=== PATIENT | male | born 1960 | race Caucasian/White ===

== ENCOUNTER 2024-10-19 14:47 | Outpatient (CLI) | payer MEDICARE, SELFPAY ==
[2024-10-25 14:10] LABS: Pancreatic Elastase, Fecal >800 (>200)
== END 2024-10-19 23:59 | disposition home or self-care (01) ==
PROVIDERS: PCP Nurse Practitioner; Visit Provider Nurse Practitioner Family
DX: R19.7 Diarrhea, unspecified (principal)
CPT/HCPCS: 82656

== ENCOUNTER 2024-11-17 12:11 | Day surgery (SDC) | payer MEDICARE, SELFPAY ==
[2024-11-15 17:16] VITALS: BMI 30.9
[2024-11-17 12:31] VITALS: BP 145/81; PULSE 85; RESP 17; TEMP 36.6; O2SAT 96
[2024-11-17] MEDS: LACTATED RINGERS 1000ML 1,000 ML 50 ML IV (12:37)
[2024-11-17 12:41] LABS: POC Glucose,Bedside 111 (70-110)
--- NOTE | 2024-11-17 13:08 | P.PNANES_ITS ---
[facility] Disclaimer: The information contained in this section may have been updated after the patient was seen, as this information can be updated by other users. Medical History Hernia Colonoscopy planned Surgical History (Updated 11/17/24 @ 12:27 by Carola Perez RN) H/O ventral hernia repair Family History Father Cancer Diabetes Daughter Thyroid disorder Mother Thyroid disorder Stroke Other Hypertension Social History Smoking Status: Never smoker alcohol intake: never substance use type: denies use current occupational status: retired Travel in the last 8 weeks: None Have you lived/traveled outside [place] in past 30 days?: No Contact w/someone who lives/traveled outside US past 30 days?: No Exposure to someone with infectious disease in past 14 days?: No Do you have a fever (greater than 100.4 F or 38 C)?: No Have you tested positive for COVID-19: No Exposed to someone with COVID-19 in past 14 days?: No Do you have a sore throat?: No Do you have a cough?: No Do you have any weakness?: No Do you have any diarrhea?: No Are you experiencing any unusual bleeding?: No Do you have any muscle aches/pain?: No Do you have any abdominal pain?: No Are you experiencing loss of taste or smell?: No [facility] Anesthesia Checklist Patient Identification Patient Identification: Arm Band Structural Data Admitted From: Home Planned Operative Procedure/s: Colonoscopy Consent for Planned Operative Procedure(s) Verified: Yes Verified Documents: Surgical Consent and History and Physical NPO Status Verified Time NPO: 00:00 Additional verifications Anesthesia Reactions: No Airway Assessment Mallampati Score:: Class II C-Spine Mobility Assessed: Yes TMJ Mobility Assessed: Yes Dentition: Good Dentition Neurological Assessment Level of Consciousness: Awake, Alert and Appropriate Anesthesia Plan Anesthesia Risk discussed: Yes Anesthesia Plan: Verified ASA Class: III Anesthesia Type: MAC
--- NOTE | 2024-11-17 14:07 | P.HP_ITS ---
History of Present Illness *Admission Date: 11/17/24 *Reason for visit:: Irregular bowel function/diarrhea *History of present illness: Mr. Ortega is a 64-year-old gentleman who is here for diagnostic colonoscopy. The patient has had intermittent diarrhea/watery stools and bloating. He does have a history of pancreatitis. The examination is deemed medically necessary for diagnostic colonoscopy. The patient has been seen, interviewed and examined prior to the procedure by both myself and the anesthesia provider. [facility] Disclaimer: The information contained in this section may have been updated after the patient was seen, as this information can be updated by other users. Medical History Hernia Colonoscopy planned Surgical History (Updated 11/17/24 @ 13:36 by Ciarra Huff RN) History of surgery H/O ventral hernia repair Family History Father Cancer Diabetes Daughter Thyroid disorder Mother Thyroid disorder Stroke Other Hypertension Social History Smoking Status: Never smoker alcohol intake: never substance use type: denies use current occupational status: retired Travel in the last 8 weeks: None Have you lived/traveled outside [place] in past 30 days?: No Contact w/someone who lives/traveled outside [place] past 30 days?: No Exposure to someone with infectious disease in past 14 days?: No Do you have a fever (greater than 100.4 F or 38 C)?: No Have you tested positive for COVID-19: No Exposed to someone with COVID-19 in past 14 days?: No Do you have a sore throat?: No Do you have a cough?: No Do you have any weakness?: No Do you have any diarrhea?: No Are you experiencing any unusual bleeding?: No Do you have any muscle aches/pain?: No Do you have any abdominal pain?: No Are you experiencing loss of taste or smell?: No Other Medical History Have you received the Pneumonia Vaccine: Yes Review of Systems Review of Systems Review of systems (narrative): Negative *Cardiovascular Comments: Negative *Gastrointestinal Comments: Negative *Genitourinary Comments: Negative *Musculoskeletal Comments: Negative *Neurologic Comments: Negative Meds Home Medications and Allergies Home Medications ?Medication ?Instructions ?Recorded ?Confirmed ?Type alfuzosin 10 mg tablet,extended 10 mg PO DAILY 08/02/24 11/17/24 History release 24 hr amitriptyline 25 mg tablet 25 mg PO DAILY 08/02/24 11/17/24 History atorvastatin 40 mg tablet 40 mg PO DAILY 08/02/24 11/17/24 History duloxetine 60 mg capsule,delayed 60 mg PO BID 08/02/24 11/17/24 History release empagliflozin 25 mg tablet 25 mg PO BID 08/02/24 11/17/24 History (Jardiance) lactulose 10 gram/15 mL oral 10 g PO NEEDED PRN liver 08/02/24 11/17/24 History solution levothyroxine 75 mcg tablet 75 mcg PO DAILY 08/02/24 11/17/24 History losartan 100 mg tablet 100 mg PO DAILY 08/02/24 11/17/24 History pregabalin 300 mg capsule 300 mg PO DAILY 08/02/24 11/17/24 History tirzepatide 2.5 mg/0.5 mL 2.5 mg SQ WEEKLY 08/02/24 11/17/24 History subcutaneous pen injector (Jordana) New Prescriptions to Start Prescriptions: Allergies Allergy/AdvReac Type Severity Reaction Status Date / Time No Known Allergies Allergy Verified 11/17/24 12:27 Exam Data for Last 24 hours Vital signs and Labs for Last 24 Hours: Temp Pulse Resp BP Pulse Ox O2 Del Method 98 F 85 17 145/81 H 96 Room Air 11/17/24 12:31 11/17/24 12:31 11/17/24 12:31 11/17/24 12:31 11/17/24 12:31 11/17/24 12:31 Laboratory Results - last 24 hr 11/17/24 12:32: POC Glucose 111 H I & O for Last 24 hours: Intake & Output 11/14/24 11/15/24 11/16/24 11/17/24 23:59 23:59 23:59 23:59 Weight 235 lb *Routine HEENT Exam Head: Present normocephalic Eye: Present EOMI and PERRL ENT: Present mucous membranes moist *Routine Neck Exam Neck: Present supple *Routine Respiratory Exam Respiratory: Present CTA bilaterally *Routine Cardiovascular Exam Cardiovascular: Present RRR *Routine Abdominal Exam Abdominal: Present soft and normoactive bowel sounds; Absent tenderness *Routine Rectal Exam Rectal:: deferred *Routine Genitalia Exam Genitalia:: deferred *Routine Extremities Exam Extremities: Absent cyanosis, clubbing or edema *Routine Skin Exam Skin: Present warm; Absent rash *Routine Neurological Exam Neurological: Present alert and oriented X3 Assessment and Plan *Assessment and plan (1) Diarrhea: Status: Acute Category: Medical Code(s): R19.7 - Diarrhea, unspecified (2) Change in bowel habits: Status: Acute Category: Medical Code(s): R19.4 - Change in bowel habit (3) Bloating: Status: Acute Category: Medical Code(s): R14.0 - Abdominal distension (gaseous) Plan A/P: 1. Diarrhea/change in bowel habits and bloating is the preprocedural diagnosis. The patient will be anesthetized/sedated using MAC sedation. The patient has been seen and examined. Cardiac and lung assessment prior to the examination is stable. Proceed with planned diagnostic colonoscopy
[2024-11-17 14:16] VITALS: O2SAT 99
--- NOTE | 2024-11-17 14:35 | HMH.PROCNOTE ---
[facility] Procedure Note Date: 11/17/24 Time: 14:35 Procedure Note:: Colonoscopy Procedure Report: Colonoscopy with cold snare polypectomy and cold biopsies Endoscopist: Cayetano Del Castillo II, MD Referring physician: MARY ELLEN Durbin Date of Procedure: November 17, 2024 Equipment: Olympus 190 variable stiffness pediatric colonoscope Sedation: MAC sedation Indication: Mr. Ortega is a 64-year-old gentleman who is here for diagnostic colonoscopy secondary to a change in bowel habits. The patient formerly had chronic constipation and bloating. He also has a history of JUAN and well compensated cirrhosis. He did have prior hepatic encephalopathy and is followed at the [facility] hepatology division. He was on Xifaxan twice daily. He is on Mounjaro and has loose multiple stools a day but about once a week he would have explosive diarrhea throughout the day. He did complete radiation for prostate cancer early last year. He does have a history of colonic polyps and was on a 3-year surveillance interval. His last colonoscopy with [facility] in January 2019 revealed a single polyp and he was given 5-year surveillance interval. The patient was hospitalized in February 2024 for diarrhea and dehydration ([facility]). His PCR panel was negative. He did try Creon but these were cost prohibitive and he was not improving. He has been on lactulose. The patient reports no rectal bleeding or weight loss. He reports no cramps or abdominal pain. He reports no family history of colon cancer. He was having some belching that was sulfur smelling. He has had gassiness and bloating. His last episode of explosive diarrhea occurred last month after he had been seen in the office in late September with Joanie HYDE. Procedure: Prior to the procedure, a history and physical exam was performed, and patient's medications and allergies were reviewed. The risks, benefits and alternatives of the sedation and procedure were discussed with the patient. All questions were answered and informed consent was obtained. The patient was brought to the procedure room. Patient identification and proposed procedure were verified by the physician and the nurse. The patient was placed in a left lateral decubitus position and the scope was passed under direct vision. Throughout the procedure, the patient's blood pressure, pulse, and oxygen saturations were monitored continuously. The colonoscopy was accomplished without difficulty. The patient tolerated the procedure well. Findings: On digital rectal examination there was normal rectal tone. There were no external hemorrhoids. The colonoscope was introduced through the anal canal to the rectum and advanced to the cecum. The ileocecal valve and appendiceal orifice were identified. The scope was advanced a short distance into the ileum which appeared grossly normal. The scope was then withdrawn into the colon. There was a single 4 mm descending colon polyp that was removed via cold biopsy. There was also a single superficial small ulcer in the descending colon near the splenic flexure that was biopsied. Random biopsies were taken from both the right and left colon to rule out microscopic colitis.. Upon retroflexion within the rectum there were 2 internal hemorrhoids. There was no evidence of any significant radiation proctitis. The preparation was excellent throughout with Blackstone Preparation Score of 9. The cecal time was 12 minutes. Impression: 1. Diminutive descending colon polyp 2. Very shallow superficial small descending colon ulcer 3. Grade 2 internal hemorrhoids Plan: I will follow-up the biopsies and polyp histology. I do feel that he is getting intermittent colonic bacterial overgrowth syndrome. Bacterial overgrowth syndrome is a term that describes symptoms or clinical manifestations (i.e. bloating and bowel irregularity) that occur when the normally low number of bacteria in the colon increase but also can sometimes inhabit the small intestine (SIBO-small intestinal bacterial overgrowth). The small bowel and upper digestive tract are thought to be a sterile environment. However, low concentrations of various bacteria live within or are attached to the luminal surface of the small intestine. These are present from the time of and throughout adulthood, living in symbiosis with the human body. They are vital for normal digestion and immunity and intestinal development. There are various occurrences that can disrupt our bodies mechanisms that keep the number of these bacteria low. Certainly peristalsis and gastric acidity help to keep these bacterial populations lower. The colonic bacterial population usually increases when there is increased fecal burden (reduced colonic clearance/incomplete defecation). It can also occur when foods are less digestable/absorbable and provide substrate for colonic denisse (i.e. FODMAP's) which results in fermentation and increased colonic denisse. It can also occur with digestive enzyme deficiencies. When foods/carbohydrates are not enzymatically digested, the sugars (often disaccharides) too become substrate for colonic floral overgrowth.
[2024-11-17 14:41] VITALS: BP 99/55; PULSE 70; RESP 16; TEMP 36.2; O2SAT 92
[2024-11-17 14:51] VITALS: BP 99/57; PULSE 67; RESP 18; O2SAT 92
[2024-11-17 15:01] VITALS: BP 105/60; PULSE 60; RESP 18; O2SAT 92
[2024-11-17 15:11] VITALS: BP 108/60; PULSE 60; RESP 18; O2SAT 94
== END 2024-11-17 15:57 | disposition home or self-care (01) ==
PROVIDERS: PCP Nurse Practitioner; Visit Provider Internal Medicine Gastroenterology
PROC: 0DJD8ZZ Inspection of Lower Intestinal Tract, Via Natural or Artificial Opening Endoscopic (ICD-10-PCS; CPT 45378; principal; 2024-11-17 14:00)
DX: R19.7 Diarrhea, unspecified (principal); R19.4 Change in bowel habit; R14.0 Abdominal distension (gaseous); K76.82 Hepatic encephalopathy; Z86.0100 Personal history of colon polyps, unspecified; K63.5 Polyp of colon; K63.3 Ulcer of intestine; K64.1 Second degree hemorrhoids; Z79.85 Long-term (current) use of injectable non-insulin antidiabetic drugs
CPT/HCPCS: 45380; 82962; J2704; J7120

== ENCOUNTER 2024-12-14 11:52 | Emergency (ER) | payer MEDICARE, SELFPAY ==
[2024-12-14 12:20] VITALS: BP 123/92; PULSE 80; RESP 18; TEMP 36.8; O2SAT 96; BMI 31.6
--- NOTE | 2024-12-14 12:29 | HMH.EDGENADL ---
Discharge Plan Disposition Patient Disposition: Admitted Condition: Good Prescriptions Prescriptions: No Action losartan 100 mg tablet 100 mg PO DAILY Patient Comments: TAKE 1 TABLET BY MOUTH ONCE DAILY FOR BLOOD PRESSURE Mounjaro 2.5 mg/0.5 mL pen injector 2.5 mg SQ WEEKLY Patient Comments: INJECT 1/2 (ONE-HALF) ML SUBCUTANEOUSLY ONCE A WEEK DIRECTED atorvastatin 40 mg tablet 40 mg PO DAILY Patient Comments: TAKE 1 TABLET BY MOUTH ONCE DAILY AT NIGHT pregabalin 300 mg capsule 300 mg PO DAILY Patient Comments: TAKE 1 CAPSULE BY MOUTH TWICE DAILY duloxetine 60 mg capsule,delayed release(DR/EC) 60 mg PO BID Patient Comments: TAKE 1 CAPSULE BY MOUTH TWICE DAILY Jardiance 25 mg tablet 25 mg PO BID Patient Comments: TAKE 1 TABLET BY MOUTH ONCE DAILY levothyroxine 75 mcg tablet 75 mcg PO DAILY Patient Comments: TAKE 1 TABLET BY MOUTH ONCE DAILY alfuzosin 10 mg tablet extended release 24 hr 10 mg PO DAILY Patient Comments: TAKE 1 TABLET BY MOUTH ONCE DAILY amitriptyline 25 mg tablet 25 mg PO DAILY Patient Comments: TAKE 1 TO 2 TABLETS BY MOUTH AT BEDTIME Xifaxan 550 mg tablet 550 mg PO BID Qty: 60 12RF Rx Instructions: 1 tablet p.o. twice daily Referrals Follow up/Referrals: Elsy Montoya APRN [Primary Care Provider] - See instructions Activity Restrictions/Add. Instructions Additional Instructions/Restrictions: Please start a brat diet which is bananas rice applesauce toast as you tolerate you can advance your diet. I have recommended what Dr. Del Castillo suggested which is start align probiotic. Please schedule your follow-up with Dr. Del Castillo. If you have any worsening signs or symptoms including increasing pain fever return to the ER. Clinical Impressions Clinical Impression: Enterocolitis Instructions Patient Instructions: DI for Diarrhea and Traveler's Diarrhea -- Adult, DI for Nausea -- Adult, DI for Enteritis Print Language Print Language: Occitan Discharge ED Provider: Dick Bridges General Adult HPI <MISAEL Webster - Last Filed: 12/14/24 17:58> General Chief complaint: Nausea/Vomiting/Diarrhea Stated complaint: sent by Dr. Del Castillo for dehydration/diarrhea Time Seen by Provider: 12/14/24 12:29 History of Present Illness HPI narrative: Patient presents for evaluation of watery diarrhea. Patient has complicated past medical history of nonalcoholic hepatic steatosis that has been previously well compensated. He has been on lactulose for 28 months prior to his colonoscopy procedure in 17 November of this year by Dr. Del Castillo. He has had a episode of hepatic encephalopathy which was the reason for the initiation of the lactulose. Patient is also on Mounjaro for type 2 diabetes mellitus, history of polyps state cancer status postradiation, hyperlipidemia, hypothyroidism, hypertension, and anxiety/depression. After his endoscopy patient was recommended to discontinue lactulose by Dr. Del Castillo secondary to possible bacterial overgrowth and patient ultimately had resolution of his symptoms until this weekend. Patient reports that since Friday he has had greater than 10 watery stools preceded by belching of sulfur abdominal cramping. He denies any fever intolerance of oral intake vomiting chest pain shortness of breath hemoptysis hematochezia melena hematemesis hematuria. He contacted Dr. Del Castillo office today and was advised to come to the ER for evaluation for possible dehydration. Related Data Home Medications ?Medication ?Instructions ?Recorded ?Confirmed alfuzosin 10 mg tablet,extended 10 mg PO DAILY 08/02/24 12/14/24 release 24 hr amitriptyline 25 mg tablet 25 mg PO DAILY 08/02/24 12/14/24 atorvastatin 40 mg tablet 40 mg PO DAILY 08/02/24 12/14/24 duloxetine 60 mg capsule,delayed 60 mg PO BID 08/02/24 12/14/24 release empagliflozin 25 mg tablet 25 mg PO BID 08/02/24 12/14/24 (Jardiance) levothyroxine 75 mcg tablet 75 mcg PO DAILY 08/02/24 12/14/24 losartan 100 mg tablet 100 mg PO DAILY 08/02/24 12/14/24 pregabalin 300 mg capsule 300 mg PO DAILY 08/02/24 12/14/24 tirzepatide 2.5 mg/0.5 mL 2.5 mg SQ WEEKLY 08/02/24 12/14/24 subcutaneous pen injector (Mounjaro) Previous Rx's ?Medication ?Instructions ?Recorded rifaximin 550 mg tablet (Xifaxan) 550 mg PO BID #60 tabs 12/14/24 Allergies Allergy/AdvReac Type Severity Reaction Status Date / Time No Known Allergies Allergy Verified 12/14/24 12:47 [facility] <MISAEL Webster - Last Filed: 12/14/24 17:58> [facility] Disclaimer: The information contained in this section may have been updated after the patient was seen, as this information can be updated by other users. Medical History (Updated 12/14/24 @ 15:00 by MISAEL Webster) Hernia Colonoscopy planned Surgical History History of surgery H/O ventral hernia repair Family History Father Cancer Diabetes Daughter Thyroid disorder Mother Thyroid disorder Stroke Other Hypertension Social History Smoking Status: Never smoker alcohol intake: never substance use type: denies use current occupational status: retired Travel in the last 8 weeks: None Have you lived/traveled outside [place] in past 30 days?: No Contact w/someone who lives/traveled outside US past 30 days?: No Exposure to someone with infectious disease in past 14 days?: No Do you have a fever (greater than 100.4 F or 38 C)?: No Have you tested positive for COVID-19: No Exposed to someone with COVID-19 in past 14 days?: No Do you have a sore throat?: No Do you have a cough?: No Do you have any weakness?: No Do you have any diarrhea?: Yes Are you experiencing any unusual bleeding?: No Do you have any muscle aches/pain?: No Do you have any abdominal pain?: No Are you experiencing loss of taste or smell?: No Other Medical History Have you received the Pneumonia Vaccine: Yes <MISAEL Webster - Last Filed: 12/14/24 17:58> ROS Obtained: Yes Systems reviewed as appropriate & no additional complaints except as documented Physical Exam <MISAEL Webster - Last Filed: 12/14/24 17:58> General General appearance: alert and in no apparent distress Respiratory Respiratory exam: Present normal lung sounds bilaterally Cardiovascular Cardiovascular exam: Present regular rate Neurological Exam Neurological exam: Present alert and oriented X3 Medical Decision Making <MISAEL Webster - Last Filed: 12/14/24 17:58> Medical Records Medical records reviewed: Yes I reviewed the patient's medical records. Screening: Per USPSTF and CDC recommendations, given the prevalence of disease in our region, it is our hospital?s policy to screen for HIV and viral Hepatitis for all patients aged 18 and over and those with ongoing risk factors. Gerard Inquiry Pt receiving controlled substance: No Vital Signs: 12/14/24 12:20 12/14/24 13:00 12/14/24 13:30 Temperature 98.2 F Temperature Source Oral Pulse Rate 60 67 Pulse Rate [Radial] 80 Respiratory Rate 18 Blood Pressure 137/83 143/81 H Blood Pressure [Right Arm] 123/92 H Blood Pressure Mean 95 93 Blood Pressure Mean [Right Arm] 102 Blood Pressure Source Blood Pressure Source [Right Arm] Automatic Cuff Blood Pressure Position [Right Arm] Sitting 02 Sat by Pulse Oximetry 96 94 L 94 L Oxygen Delivery Method Room Air 12/14/24 15:11 Temperature 98.0 F Temperature Source Oral Pulse Rate 65 Pulse Rate [Radial] Respiratory Rate 18 Blood Pressure 144/84 H Blood Pressure [Right Arm] Blood Pressure Mean Blood Pressure Mean [Right Arm] Blood Pressure Source Automatic Cuff Blood Pressure Source [Right Arm] Blood Pressure Position [Right Arm] 02 Sat by Pulse Oximetry Oxygen Delivery Method Room Air Lab Data Lab results reviewed: Yes I reviewed the patient's lab results. Lab Results 12/14/24 12:44: WBC 7.2, RBC 5.55, Hgb 16.3, Hct 49.0, MCV 88.3, MCH 29.4, MCHC 33.3, RDW 13.9, Plt Count 112 L, MPV 12.7 H, Neut % (Auto) 71.9, Lymph % (Auto) 18.3, Armstrong % (Auto) 7.2, Eos % (Auto) 2.4, Baso % (Auto) 0.1, Neut # (Auto) 5.2, Lymph # (Auto) 1.3, Armstrong # (Auto) 0.5, Eos # (Auto) 0.2, Baso # (Auto) 0.0, Sodium 139, Potassium 4.3, Chloride 108 H, Carbon Dioxide 23, Anion Gap 12.3, BUN 20, Creatinine 1.00, Estimated Creat Clear 113, Estimated GFR 75, Est GFR ( Amer) 91, Glucose 142 H, Calcium 9.4, Magnesium 2.1, Total Bilirubin 0.7, AST 40, ALT 36, Alkaline Phosphatase 89, Total Protein 7.4, Albumin 4.9, Globulin 2.5, Albumin/Globulin Ratio 2.0 H, HCV Ab RENZO w/Rflx PCR Qn Negative, HIV Ag/Ab Combo Qual Negative 12/14/24 13:05: Ammonia 9 12/14/24 14:28: Stl Aeromonas (PCR) Not detected, Stl C. cayetanensis PCR Not detected, Stool Rotavirus (PCR) Not detected, Stl Adenov F 40/41 PCR Not detected, Stool Astrovirus (PCR) Not detected, Stool Campylobacter PCR Not detected, Stl C.difficile Tox PCR Not detected, Stool Cryptosporidium PCR Not detected, Stl E.coli Shiga Tox PCR Not detected, Stool E coli O157 PCR Not detected, Stl Enterotoxigenic E PCR Not detected, Stool EPEC (PCR) Not detected, Stool EAEC (PCR) Not detected, Stl E. histolytica PCR Not detected, Stool Giardia Lamblia PCR Not detected, Stool Salmonella PCR Not detected, Stool Sapovirus (PCR) Not detected, Stl P. shigelloides PCR Not detected, Stl Shigella/EIEC PCR Not detected, St Y.enterocolitica PCR Not detected, Stool Vibrio (PCR) Not detected, Stl Vibrio cholerae PCR Not detected, Stl Norovirus GI/GII PCR Not detected 12/14/24 12:44 12/14/24 12:44 Orders (Tests/Meds): ED MEDICATIONS Discontinued Medications Generic Name Dose Route Start Last Admin Trade Name Freq PRN Reason Stop Dose Admin Sodium Chloride 1,000 mls @ 999 mls/hr 12/14/24 12:44 12/14/24 13:18 Sod Chlor 0.9% 1000ml Bag IV 12/14/24 13:44 999 mls/hr .Q1H1M ONE Administration Iopamidol 75 ml 12/14/24 13:48 12/14/24 13:49 Iopamidol-370 (76%);100ml Bottle IV 12/14/24 13:49 75 ml ONCE ONE Administration Ondansetron HCl 4 mg 12/14/24 12:44 12/14/24 13:18 Ondansetron 4mg/2ml Vial IV 12/14/24 12:45 4 mg ONCE ONE Administration Sodium Chloride 10 ml 12/14/24 13:48 12/14/24 13:49 Sodium Chloride 0.9% 10ml Syr (Rad Only) IV 12/14/24 13:49 10 ml ONCE ONE Administration ORDERS Category Date Time Status CT abdomen pelvis w con Stat Cat Scan 12/14/24 12:44 Completed Ammonia Stat Lab 12/14/24 13:05 Completed CBC w/Auto Diff [Complete Blood Count Auto Diff] Stat Lab 12/14/24 12:44 Completed CMP [Comprehensive Metabolic Panel] Stat Lab 12/14/24 12:44 Completed Diarrhea 23 Panel, PCR Stat Lab 12/14/24 14:28 Completed HIV Combo Stat Lab 12/14/24 12:44 Completed Hepatitis C Ab Qual. W/ RFX Stat Lab 12/14/24 12:44 Completed Magnesium Stat Lab 12/14/24 12:44 Completed Medical Decision Narrative: In summary patient is a 64-year-old male who presents to the emergency department for evaluation of watery diarrhea abdominal cramping. Patient is hemodynamically stable upon arrival, afebrile. Physical exam is remarkable for mild diffuse abdominal discomfort on palpation but no focal tenderness no rebound or guarding or rigidity. Bowel sounds hypoactive.. Differential diagnosis includes infectious diarrhea versus colitis versus gastroenteritis etc. Initial workup will be conducted with hematologic labs CT scan abdomen pelvis. Initial interventions include crystalloid bolus and Zofran as patient reports some nausea currently. Initial workup reviewed by me shows that his hematologic labs are nonactionable with a normal white count no neutrophilic shift no electrolyte abnormalities and my informal interpretation of the CT scan of the pelvis basically shows a fluid-filled small and large bowel with no significant bowel wall thickening or soft tissue stranding compatible with enterocolitis. Patient's diarrhea panel is negative for all organisms.. Upon repeat evaluation patient is tolerating p.o. intake his heart rate has come down to 65 and his blood pressure is actually normalized. Then had interactive discussion with Dr. Del Castillo gastroenterology regarding patient presentation DALEY and findings and patient management. Dr. Del Castillo would like to start the patient on a probiotic and will see the patient back in clinic. Given this patient is appropriate for discharge with recommendations of align that Dr. Del Castillo recommended and close follow-up in GI clinic. Patient given strict return precautions. <Dick Bridges MD - Last Filed: 12/16/24 16:01> Vital Signs: 12/14/24 12:20 12/14/24 13:00 12/14/24 13:30 Temperature 98.2 F Temperature Source Oral Pulse Rate 60 67 Pulse Rate [Radial] 80 Respiratory Rate 18 Blood Pressure 137/83 143/81 H Blood Pressure [Right Arm] 123/92 H Blood Pressure Mean 95 93 Blood Pressure Mean [Right Arm] 102 Blood Pressure Source Blood Pressure Source [Right Arm] Automatic Cuff Blood Pressure Position [Right Arm] Sitting 02 Sat by Pulse Oximetry 96 94 L 94 L Oxygen Delivery Method Room Air 12/14/24 15:11 Temperature 98.0 F Temperature Source Oral Pulse Rate 65 Pulse Rate [Radial] Respiratory Rate 18 Blood Pressure 144/84 H Blood Pressure [Right Arm] Blood Pressure Mean Blood Pressure Mean [Right Arm] Blood Pressure Source Automatic Cuff Blood Pressure Source [Right Arm] Blood Pressure Position [Right Arm] 02 Sat by Pulse Oximetry Oxygen Delivery Method Room Air Lab Data Lab Results 12/14/24 12:44: WBC 7.2, RBC 5.55, Hgb 16.3, Hct 49.0, MCV 88.3, MCH 29.4, MCHC 33.3, RDW 13.9, Plt Count 112 L, MPV 12.7 H, Neut % (Auto) 71.9, Lymph % (Auto) 18.3, Armstrong % (Auto) 7.2, Eos % (Auto) 2.4, Baso % (Auto) 0.1, Neut # (Auto) 5.2, Lymph # (Auto) 1.3, Armstrong # (Auto) 0.5, Eos # (Auto) 0.2, Baso # (Auto) 0.0, Sodium 139, Potassium 4.3, Chloride 108 H, Carbon Dioxide 23, Anion Gap 12.3, BUN 20, Creatinine 1.00, Estimated Creat Clear 113, Estimated GFR 75, Est GFR ( Amer) 91, Glucose 142 H, Calcium 9.4, Magnesium 2.1, Total Bilirubin 0.7, AST 40, ALT 36, Alkaline Phosphatase 89, Total Protein 7.4, Albumin 4.9, Globulin 2.5, Albumin/Globulin Ratio 2.0 H, HCV Ab RENZO w/Rflx PCR Qn Negative, HIV Ag/Ab Combo Qual Negative 12/14/24 13:05: Ammonia 9 12/14/24 14:28: Stl Aeromonas (PCR) Not detected, Stl C. cayetanensis PCR Not detected, Stool Rotavirus (PCR) Not detected, Stl Adenov F 40/41 PCR Not detected, Stool Astrovirus (PCR) Not detected, Stool Campylobacter PCR Not detected, Stl C.difficile Tox PCR Not detected, Stool Cryptosporidium PCR Not detected, Stl E.coli Shiga Tox PCR Not detected, Stool E coli O157 PCR Not detected, Stl Enterotoxigenic E PCR Not detected, Stool EPEC (PCR) Not detected, Stool EAEC (PCR) Not detected, Stl E. histolytica PCR Not detected, Stool Giardia Lamblia PCR Not detected, Stool Salmonella PCR Not detected, Stool Sapovirus (PCR) Not detected, Stl P. shigelloides PCR Not detected, Stl Shigella/EIEC PCR Not detected, St Y.enterocolitica PCR Not detected, Stool Vibrio (PCR) Not detected, Stl Vibrio cholerae PCR Not detected, Stl Norovirus GI/GII PCR Not detected Orders (Tests/Meds): ED MEDICATIONS Discontinued Medications Generic Name Dose Route Start Last Admin Trade Name Freq PRN Reason Stop Dose Admin Sodium Chloride 1,000 mls @ 999 mls/hr 12/14/24 12:44 12/14/24 13:18 Sod Chlor 0.9% 1000ml Bag IV 12/14/24 13:44 999 mls/hr .Q1H1M ONE Administration Iopamidol 75 ml 12/14/24 13:48 12/14/24 13:49 Iopamidol-370 (76%);100ml Bottle IV 12/14/24 13:49 75 ml ONCE ONE Administration Ondansetron HCl 4 mg 12/14/24 12:44 12/14/24 13:18 Ondansetron 4mg/2ml Vial IV 12/14/24 12:45 4 mg ONCE ONE Administration Sodium Chloride 10 ml 12/14/24 13:48 12/14/24 13:49 Sodium Chloride 0.9% 10ml Syr (Rad Only) IV 12/14/24 13:49 10 ml ONCE ONE Administration ORDERS Category Date Time Status CT abdomen pelvis w con Stat Cat Scan 12/14/24 12:44 Completed Ammonia Stat Lab 12/14/24 13:05 Completed CBC w/Auto Diff [Complete Blood Count Auto Diff] Stat Lab 12/14/24 12:44 Completed CMP [Comprehensive Metabolic Panel] Stat Lab 12/14/24 12:44 Completed Diarrhea 23 Panel, PCR Stat Lab 12/14/24 14:28 Completed HIV Combo Stat Lab 12/14/24 12:44 Completed Hepatitis C Ab Qual. W/ RFX Stat Lab 12/14/24 12:44 Completed Magnesium Stat Lab 12/14/24 12:44 Completed Medical Decision Narrative: In summary patient is a 64-year-old male who presents to the emergency department for evaluation of watery diarrhea abdominal cramping. Patient is hemodynamically stable upon arrival, afebrile. Physical exam is remarkable for mild diffuse abdominal discomfort on palpation but no focal tenderness no rebound or guarding or rigidity. Bowel sounds hypoactive.. Differential diagnosis includes infectious diarrhea versus colitis versus gastroenteritis etc. Initial workup will be conducted with hematologic labs CT scan abdomen pelvis. Initial interventions include crystalloid bolus and Zofran as patient reports some nausea currently. Initial workup reviewed by me shows that his hematologic labs are nonactionable with a normal white count no neutrophilic shift no electrolyte abnormalities and my informal interpretation of the CT scan of the pelvis basically shows a fluid-filled small and large bowel with no significant bowel wall thickening or soft tissue stranding compatible with enterocolitis. Patient's diarrhea panel is negative for all organisms.. Upon repeat evaluation patient is tolerating p.o. intake his heart rate has come down to 65 and his blood pressure is actually normalized. Then had interactive discussion with Dr. Del Castillo gastroenterology regarding patient presentation DALEY and findings and patient management. Dr. Del Castillo would like to start the patient on a probiotic and will see the patient back in clinic. Given this patient is appropriate for discharge with recommendations of align that Dr. Del Castillo recommended and close follow-up in GI clinic. Patient given strict return precautions. I was consulted by the CRISTAL, and we discussed the complexity of the problems being addressed. I approved the treatment and management plan for this patient's care in the Emergency Department, thus performing a substantive portion of the medical decision making. Dick Bridges MD Critical Care <MISAEL Webster - Last Filed: 12/14/24 17:58> Critical Care Time Critical Care Time: No
--- NOTE | 2024-12-14 12:44 | CT_ITS ---
FINAL REPORT TECHNIQUE: IV contrast enhanced exam This study was performed with techniques to keep radiation doses as low as reasonably achievable, (ALARA). Individualized dose reduction techniques using automated exposure control or adjustment of mA and/or kV according to the patient''s size were employed. CLINICAL HISTORY: Watery diarrhea, abdominal cramps FINDINGS: Abdomen: No acute density is seen within the lung bases. The gallbladder is unremarkable. There are left renal cysts. The remaining solid abdominal organs are unremarkable. There is gastric distention with fluid. The small and large bowel are fluid-filled with mild colonic distention. The pattern is most suggestive of gastroenteritis. There is no free air. No fluid collection is seen. There is no adenopathy. Pelvis: The appendix is normal. Radiation markers are seen within the prostate. The urinary bladder is unremarkable. There is fluid-filled large and small bowel. There is no free fluid. No pelvic mass is seen. IMPRESSION: Fluid-filled bowel most suggestive of gastroenteritis. Reviewed, Interpreted and Dictated by Iwona Lopez MD Transcribed by Jeaneth Salvador Authenticated and . [facility]
[2024-12-14 12:59] LABS: Basophils % 0.1 % (0.1-2.0); Eosinophils # 0.2 K/mm3 (0.0-0.4); Eosinophils % 2.4 % (0.1-12.0); Hemoglobin 16.3 g/dL (14.1-18.0); Lymphocytes # 1.3 K/mm3 (0.7-4.5); Lymphocytes % 18.3 % (10-50); Mean Corpuscular HGB Conc 33.3 g/dL (31.8-35.4); Mean Corpuscular Hemoglobin 29.4 pg (27.0-31.2); Mean Corpuscular Volume 88.3 fl (80-94); Mean Platelet Volume 12.7 fl (7.4-10.4); Monocytes # 0.5 K/mm3 (0.1-1.0); Monocytes % 7.2 % (1.7-9.3); Neutrophils # 5.2 K/mm3 (1.8-7.8); Neutrophils % 71.9 % (37.0-80.0); Platelet Count 112 K/mm3 (142-424); Red Blood Count 5.55 M/mm3 (4.60-6.20); Red Cell Distribution Width 13.9 % (11.5-17.5); White Blood Count 7.2 K/mm3 (4.8-10.8)
[2024-12-14 13:00] VITALS: BP 137/83; PULSE 60; O2SAT 94
[2024-12-14 13:17] LABS: Albumin Level 4.9 g/dl (3.5-5.0); Chloride 108 mmol/L (98-107); Potassium 4.3 mmoL/L (3.5-5.1); Sodium 139 mmol/L (136-145)
[2024-12-14] MEDS: 0.9 % SODIUM CHLORIDE 1000ML 1,000 ML 999 ML IV (13:18)
[2024-12-14] MEDS: ONDANSETRON 4MG/2ML VIAL 4 MG IV (13:18)
[2024-12-14 13:20] LABS: Alanine Aminotransferase 36 U/L (12-78); Alkaline Phosphatase 89 U/L (38-126); Anion Gap 12.3 mEq/L (5-15); Aspartate Amino Transferase 40 U/L (17-59); Bilirubin,Total 0.7 mg/dl (0.2-1.3); Blood Urea Nitrogen 20 mg/dl (9-20); Calcium 9.4 mg/dl (8.4-10.2); Carbon Dioxide 23 mmol/L (22.0-30.0); Creatinine Clearance Estimated 113 mL/min (50-200); Estimated Glomerular Filt Rate 75 ml/min (>60); GFR (African American) 91 ML/MIN (>60); Globulin 2.5 g/dL (1.3-3.2); Glucose 142 mg/dl (74-100); Total Protein,Serum 7.4 g/dl (6.3-8.2)
[2024-12-14 13:21] LABS: Magnesium 2.1 mg/dl (1.6-2.3)
[2024-12-14 13:24] LABS: Ammonia 9 umol/L (9-30)
[2024-12-14 13:30] VITALS: BP 143/81; PULSE 67; O2SAT 94
[2024-12-14] MEDS: SODIUM CHLORIDE 0.9% 10ML SYR (RAD ONLY) 10 ML IV (13:49)
[2024-12-14] MEDS: IOPAMIDOL-370 (76%);100ML BOTTLE 75 ML IV (13:49)
[2024-12-14 14:30] LABS: Adenovirus F 40/41, stool Not Detected (NotDetected); Astrovirus Not Detected (NotDetected); Campylobacter Not Detected (NotDetected); Clostridium Difficile A/B, PCR Not Detected (NotDetected); Cryptosporidium Not Detected (NotDetected); Cyclospora Cayetanesis Not Detected (NotDetected); Entamoeba histolytica Not Detected (NotDetected); Enteroaggregative E coli Not Detected (NotDetected); Enteropathogenic E coli Not Detected (NotDetected); Enterotoxigenic E coli Not Detected (NotDetected); Giardia lamblia Not Detected (NotDetected); Norovirus Not Detected (NotDetected); Plesimonas Shigalloides, PCR Not Detected (NotDetected); Rotavirus A Not Detected (NotDetected); Salmonella, PCR Not Detected (NotDetected); Sapovirus Not Detected (NotDetected); Shiga-like toxin E coli Not Detected (NotDetected); Shigella Enterovasive E coli Not Detected (NotDetected); Vibrio Cholerae Not Detected (NotDetected); Vibrio, PCR Not Detected (NotDetected); Yersinia Entercolitica, PCR Not Detected (NotDetected)
[2024-12-14 15:11] VITALS: BP 144/84; PULSE 65; RESP 18; TEMP 36.7; O2SAT 98
[2024-12-14 15:50] LABS: HIV Combo NEGATIVE (Negative)
[2024-12-14 15:58] LABS: Hepatitis C Ab Qual. W/ RFX NEGATIVE (Negative)
== END 2024-12-14 15:19 | disposition home or self-care (01) ==
PROVIDERS: Physician Assistant; Emergency Provider Emergency Medicine; PCP Nurse Practitioner
DX: K52.9 Noninfective gastroenteritis and colitis, unspecified (principal); R10.9 Unspecified abdominal pain
CPT/HCPCS: 74177; 80053; 82140; 83735; 85025; 86803; 87389; 87507; 96361; 96374; 96375; 99285; J2405; J7030; Q9967

== ENCOUNTER 2025-05-18 06:24 | Day surgery (SDC) | payer MEDICARE, SELFPAY ==
[2025-05-11 12:15] VITALS: BMI 31.9
[2025-05-18 07:02] VITALS: BP 117/67; PULSE 58; RESP 18; TEMP 36.2; O2SAT 97
[2025-05-18] MEDS: LACTATED RINGERS 1000ML 1,000 ML 50 ML IV (07:16)
--- NOTE | 2025-05-18 07:23 | EXP.HP ---
History of Present Illness *Admission Date: 05/18/25 *History of present illness: Mr. Ortega is a 64-year-old gentleman who is here for diagnostic EGD secondary to his cirrhosis and presumed portal hypertension. The patient also has had some dysphagia. The examination is deemed medically necessary for diagnostic EGD. The patient has been seen, interviewed and examined prior to the procedure by both myself and the anesthesia provider. [facility] Disclaimer: The information contained in this section may have been updated after the patient was seen, as this information can be updated by other users. Medical History (Updated 05/18/25 @ 08:02 by Cayetano Del Castillo II, MD) Dehydration Dysphagia Liver disease History of gastroesophageal reflux (GERD) Diabetes mellitus, type 2 Hyperlipidemia Hypertension Hernia Colonoscopy planned Surgical History History of surgery H/O ventral hernia repair Family History Father Cancer Diabetes Daughter Thyroid disorder Mother Thyroid disorder Stroke Other Hypertension Social History (Updated 05/18/25 @ 07:14 by Ciarra Huff RN) Smoking Status: Never smoker alcohol intake: never substance use type: denies use current occupational status: retired Travel in the last 8 weeks?: None caffeine: No Have you lived/traveled outside [place] in past 30 days?: No Contact w/someone who lives/traveled outside US past 30 days?: No Exposure to someone with infectious disease in past 14 days?: No Do you have a fever (greater than 100.4 F or 38 C)?: No Have you tested positive for COVID-19?: No Exposed to someone with COVID-19 in past 14 days?: No Do you have a sore throat?: No Do you have a cough?: No Do you have any weakness?: No Are you experiencing any nausea/vomitting?: No Do you have any diarrhea?: No Are you experiencing any unusual bleeding?: No Do you have any muscle aches/pain?: No Do you have any abdominal pain?: No Are you experiencing loss of taste or smell?: No Other Medical History Have you received the Pneumonia Vaccine: Yes Review of Systems Review of Systems Review of systems (narrative): Negative *Cardiovascular Comments: Negative *Gastrointestinal Comments: Negative *Genitourinary Comments: Negative *Musculoskeletal Comments: Negative *Neurologic Comments: Negative Meds Home Medications and Allergies Home Medications ?Medication ?Instructions ?Recorded ?Confirmed ?Type alfuzosin 10 mg tablet,extended 10 mg PO DAILY 08/02/24 05/18/25 History release 24 hr amitriptyline 25 mg tablet 50 mg PO DAILY 08/02/24 05/18/25 History atorvastatin 40 mg tablet 40 mg PO DAILY 08/02/24 05/18/25 History duloxetine 60 mg capsule,delayed 60 mg PO BID 08/02/24 05/18/25 History release empagliflozin 25 mg tablet 25 mg PO BID 08/02/24 05/18/25 History (Jardiance) levothyroxine 75 mcg tablet 75 mcg PO DAILY 08/02/24 05/18/25 History losartan 100 mg tablet 100 mg PO DAILY 08/02/24 05/18/25 History pregabalin 300 mg capsule 300 mg PO DAILY 08/02/24 05/18/25 History glipizide 10 mg tablet 10 mg PO BID 01/25/25 05/18/25 History lactulose 10 gram/15 mL oral 10 g PO DAILY PRN Constipation 01/25/25 05/18/25 History solution New Prescriptions to Start Prescriptions: Allergies Allergy/AdvReac Type Severity Reaction Status Date / Time No Known Allergies Allergy Verified 05/18/25 06:59 Exam Data for Last 24 hours Vital signs and Labs for Last 24 Hours: Temp Pulse Resp BP Pulse Ox O2 Del Method 97.2 F L 58 L 18 117/67 97 Room Air 05/18/25 07:02 05/18/25 07:02 05/18/25 07:02 05/18/25 07:02 05/18/25 07:02 05/18/25 07:02 *Routine HEENT Exam Head: Present normocephalic Eye: Present EOMI and PERRL ENT: Present mucous membranes moist *Routine Neck Exam Neck: Present supple *Routine Respiratory Exam Respiratory: Present CTA bilaterally *Routine Cardiovascular Exam Cardiovascular: Present RRR *Routine Abdominal Exam Abdominal: Present soft and normoactive bowel sounds; Absent tenderness *Routine Rectal Exam Rectal:: deferred *Routine Genitalia Exam Genitalia:: deferred *Routine Extremities Exam Extremities: Absent cyanosis, clubbing or edema *Routine Skin Exam Skin: Present warm; Absent rash *Routine Neurological Exam Neurological: Present alert and oriented X3 Assessment and Plan *Assessment and plan (1) Cirrhosis of liver: Status: Acute Category: Medical Code(s): K74.60 - Unspecified cirrhosis of liver (2) JUAN (nonalcoholic steatohepatitis): Status: Acute Category: Medical Code(s): K75.81 - Nonalcoholic steatohepatitis (JUAN) (3) Portal hypertension: Status: Acute Category: Medical Code(s): K76.6 - Portal hypertension (4) Dysphagia: Status: Acute Category: Medical Code(s): R13.10 - Dysphagia, unspecified Plan A/P: 1. Cirrhosis with portal hypertension is the preprocedural diagnosis. The patient has also had some dysphagia. The patient will be anesthetized/sedated using MAC sedation. The patient has been seen and examined. Cardiac and lung assessment prior to the examination is stable. Proceed with planned diagnostic EGD.
--- NOTE | 2025-05-18 07:26 | P.PNANES_ITS ---
[facility] Disclaimer: The information contained in this section may have been updated after the patient was seen, as this information can be updated by other users. Medical History (Updated 05/18/25 @ 07:25 by Cayetano Del Castillo II, MD) Dehydration Dysphagia Liver disease History of gastroesophageal reflux (GERD) Diabetes mellitus, type 2 Hyperlipidemia Hypertension Hernia Colonoscopy planned Surgical History History of surgery H/O ventral hernia repair Family History Father Cancer Diabetes Daughter Thyroid disorder Mother Thyroid disorder Stroke Other Hypertension Social History (Updated 05/18/25 @ 07:14 by Ciarra Huff, GEORGINA) Smoking Status: Never smoker alcohol intake: never substance use type: denies use current occupational status: retired Travel in the last 8 weeks?: None caffeine: No Have you lived/traveled outside [place] in past 30 days?: No Contact w/someone who lives/traveled outside US past 30 days?: No Exposure to someone with infectious disease in past 14 days?: No Do you have a fever (greater than 100.4 F or 38 C)?: No Have you tested positive for COVID-19?: No Exposed to someone with COVID-19 in past 14 days?: No Do you have a sore throat?: No Do you have a cough?: No Do you have any weakness?: No Are you experiencing any nausea/vomitting?: No Do you have any diarrhea?: No Are you experiencing any unusual bleeding?: No Do you have any muscle aches/pain?: No Do you have any abdominal pain?: No Are you experiencing loss of taste or smell?: No [facility] Anesthesia Checklist Patient Identification Patient Identification: Arm Band and Verbal (Name & ) Structural Data Admitted From: Home Planned Operative Procedure/s: EGD Verified Documents: Surgical Consent NPO Status Verified Time NPO: 00:00 Additional verifications Fingerstick Blood Glucose: 208 Anesthesia Reactions: No Airway Assessment Mallampati Score:: Class II C-Spine Mobility Assessed: Yes TMJ Mobility Assessed: Yes Dentition: Good Dentition Neurological Assessment Level of Consciousness: Awake, Alert and Appropriate Hx Seizures: No Numbness or tingling in extremities: No Anesthesia Plan Anesthesia Risk discussed: Yes Anesthesia Plan: Verified ASA Class: III Anesthesia Type: MAC
--- NOTE | 2025-05-18 08:02 | HMH.PROCNOTE ---
[facility] Procedure Note Date: 05/18/25 Time: 08:13 Procedure Note:: Upper Endoscopy Procedure Report: Esophagogastroduodenoscopy with cold biopsies Endoscopost: Cayetano Del Castillo II, MD Referring Physician: MARY ELLEN Durbin/ Dante Whitney MD [address] [facility] [address] [place] [address] Date of Procedure: May 18, 2025 Equipment: Olympus GIF-1100 standard upper endoscope Sedation: MAC sedation Indications: Mr. Ortega is a 64-year-old gentleman with JUAN and cirrhosis. The patient has seen [facility] and EGD was recommended to rule out esophageal varices. The patient has had no melena or hematemesis. The patient is not anemic by labs from 12/14/2024. The patient was having some bloating and irregular bowel function. This improved after stopping Mounjaro. He did have a colonoscopy with me in November 2024 and had a single polyp (tubular adenoma) which was removed. The patient does report some dysphagia over the last month. This can occur with liquids and he will have coughing and choking. Procedure: Prior to the procedure, a history and physical exam was performed, and patient's medications and allergies were reviewed. The risks, benefits and alternatives of the sedation and procedure were discussed with the patient. All questions were answered and informed consent was obtained. The patient was brought to the procedure room. Patient identification and proposed procedure were verified by the physician and the nurse. The patient was placed in a left lateral decubitus position and the scope was passed under direct vision. Throughout the procedure, the patient's blood pressure, pulse, and oxygen saturations were monitored continuously. The upper GI endoscopy was accomplished without difficulty. The patient tolerated the procedure well. Findings: The scope was passed directly into the upper esophagus and advanced to the fourth portion of duodenum and proximal jejunum. A cold biopsy was taken from the third portion of duodenum for the disaccharidase assay. The proximal jejunum, post bulbar duodenum, ampulla and duodenal bulb were normal with normal mucosa and conniventes. The scope was withdrawn through a normal duodenal bulb and pylorus into the stomach. There was bile reflux with mild linear reactive gastropathy of the antrum. Cold biopsies were taken from the antrum. The body and fundus of the stomach were normal with no evidence of portal gastropathy. Upon retroflexion there were no gastric varices. The scope was then withdrawn into the esophagus. There was grade A?B reflux esophagitis (LA classification). There was no evidence of Farris's esophagus. Biopsies were taken from the GE junction. There were very faint grade 0?1 small esophageal varices with 2 columns that extended less than 3 to 4 cm. There were tertiary contractions and evidence of moderate esophageal dysmotility. The entire esophagus was dilated to 60 [place]/20 mm with a TTS hydrostatic balloon. There were no strictures, corrugation or rings. The remainder of the esophageal mucosa was normal. Impression: 1. Very faint grade 0?1 esophageal varices (2 thin columns that extended 3 to 4 cm) 2. Grade A?B reflux esophagitis with mild to moderate esophageal dysmotility status post dilation to 20 mm 3. Bile reflux with mild linear reactive gastropathy of antrum Plan: I will follow-up the biopsies. The patient did not have significant changes of portal hypertension even though there were some very faint/thin and small grade 0?1 esophageal varices.
[2025-05-18 08:16] VITALS: BP 103/65; PULSE 72; RESP 16; TEMP 36.1; O2SAT 93
[2025-05-18 08:26] VITALS: BP 108/62; PULSE 69; RESP 16; O2SAT 93
[2025-05-18 08:36] VITALS: BP 101/48; PULSE 61; RESP 16; O2SAT 95
[2025-05-18 08:46] VITALS: BP 104/67; PULSE 73; RESP 16; O2SAT 95
[2025-05-19 12:01] LABS: POC Glucose,Bedside 41 (70-110)
[2025-05-19 12:01] LABS: POC Glucose,Bedside 208 (70-110)
[2025-05-23 14:25] LABS: Interpretation Notes (.); Lactase 24.7 (>/= 14.0); Maltase 161.95 (>/= 110.0); Palatinase 14.26 (>/= 8.5); Reference Notes (.); Sucrase 47.36 (>/= 25.0)
== END 2025-05-18 09:00 | disposition home or self-care (01) ==
PROVIDERS: PCP Nurse Practitioner; Visit Provider Internal Medicine Gastroenterology
PROC: 0DJ08ZZ Inspection of Upper Intestinal Tract, Via Natural or Artificial Opening Endoscopic (ICD-10-PCS; CPT 43239; principal; 2025-05-18 08:00)
DX: K21.00 Gastro-esophageal reflux disease with esophagitis, without bleeding (principal); I85.00 Esophageal varices without bleeding; K29.50 Unspecified chronic gastritis without bleeding; E11.9 Type 2 diabetes mellitus without complications; E78.5 Hyperlipidemia, unspecified; I10 Essential (primary) hypertension; K76.9 Liver disease, unspecified; Z79.899 Other long term (current) drug therapy; Z79.890 Hormone replacement therapy
CPT/HCPCS: 43239; 82657; 82962; C1726; J2003; J2704; J7120